=== PATIENT | male | born 1955 | race Caucasian/White ===

== ENCOUNTER 2023-09-03 16:07 | Emergency (ER) | payer OTHER, MEDICARE ==
[2023-09-03] MEDS ORDERED: Bacitracin 1 PK ONE (16:36)
[2023-09-03] MEDS ORDERED: Naproxen 500 MG TAB ONE (16:36)
== END 2023-09-03 16:47 | disposition home or self-care (01) ==
LOC: BURERS 16:07
DX: S40.021A Contusion of right upper arm, initial encounter (principal); S50.11XA Contusion of right forearm, initial encounter; S60.811A Abrasion of right wrist, initial encounter; I10 Essential (primary) hypertension; F17.290 Nicotine dependence, other tobacco product, uncomplicated; W22.8XXA Striking against or struck by other objects, initial encounter; Y93.89 Activity, other specified